=== PATIENT | female | born 1965 | race Caucasian/White ===

== ENCOUNTER 2017-11-13 09:05 | Emergency (ER) | payer OTHER ==
[2017-11-13] MEDS ORDERED: AMOXicillin 250 MG CAP ONE (09:45)
[2017-11-13] MEDS ORDERED: methylPREDNISolone Sod Succ/PF 125 MG/2 ML VIAL ONE (09:45)
== END 2017-11-13 09:53 | disposition home or self-care (01) ==
LOC: NAV ERS 09:05
DX: J44.1 Chronic obstructive pulmonary disease with (acute) exacerbation (principal); I10 Essential (primary) hypertension; F17.210 Nicotine dependence, cigarettes, uncomplicated; Z79.899 Other long term (current) drug therapy
CPT/HCPCS: 96372; J2930